=== PATIENT | female | born 1970 | race Caucasian/White ===

== ENCOUNTER 2018-09-30 10:42 | Day surgery (SDC) | payer OTHER ==
[~2018-09-30 10:42] MED LIST: CEFAZOLIN 2 GM/50 ML (PMX) 50 ML IVPB; SOD CHLORIDE 0.9% 1,000 ML IV
[2018-09-30] MEDS ORDERED: GLYCOPYRROLATE 0.4 MG INJ IV (10:43)
[2018-09-30] MEDS ORDERED: NEOSTIGMINE 3 MG/3 ML SYRINGE IV (10:43)
[2018-09-30] MEDS ORDERED: PROPOFOL 100 ML (12:34)
[2018-09-30] MEDS ORDERED: BUPIVACAINE 0.25% (MPF) 30 ML INJ (12:38)
[2018-09-30] MEDS ORDERED: CEFAZOLIN 1 GM INJ (12:47)
[2018-09-30] MEDS ORDERED: LIDOCAINE 2% (SDV) 5 ML INJ (12:47)
[2018-09-30] MEDS ORDERED: DEXAMETHASONE 4 MG/ML 1 ML INJ (12:50)
[2018-09-30] MEDS ORDERED: ONDANSETRON 4 MG INJ (12:50)
[2018-09-30] MEDS ORDERED: KETOROLAC 30 MG INJ (13:35)
[2018-09-30] MEDS: BUPIVACAINE 0.5%/EPI (SDV) 30 ML INJ (13:35)
[2018-09-30] MEDS ORDERED: MEPERIDINE 25 MG INJ IV (14:00)
[2018-09-30] MEDS ORDERED: IBUPROFEN 600 MG TAB PO (14:00)
[2018-09-30] MEDS ORDERED: MIDAZOLAM 1 MG/ML 2 ML INJ IV (14:00)
[2018-09-30] MEDS ORDERED: HYDROCODONE/APAP (5/325) TAB PO (14:00)
[2018-09-30] MEDS ORDERED: FENTAnyl 50 MCG/ML VIAL IV ×3 (14:00)
[2018-09-30] MEDS ORDERED: morphine 2 MG INJ IV (14:00)
[2018-09-30] MEDS ORDERED: hydrALAzine 20 MG INJ IV (14:00)
[2018-09-30] MEDS ORDERED: LABETALOL HCL 20MG INJ IV (14:00)
[2018-09-30] MEDS ORDERED: ONDANSETRON 4 MG INJ IV (14:00)
[2018-09-30] MEDS ORDERED: EPHEDrine SULFATE 50 MG/5 ML SYG IV (14:00)
[2018-09-30] MEDS ORDERED: OXYCODONE/ACETAMINOPHEN (5/325) TAB PO ×2 (14:00)
[2018-09-30] MEDS ORDERED: DIPHENHYDRAMINE 50 MG INJ IV (14:00)
[2018-09-30] MEDS ORDERED: HYDROmorphONE 1 MG/5 ML IV SYRINGE IV ×2 (14:00)
[2018-09-30] MEDS ORDERED: METOCLOPRAMIDE 10 MG INJ IV (14:00)
[2018-09-30] MEDS ORDERED: ALBUTEROL 0.083% (NEB) 2.5 MG/3 ML AMP HHN (14:00)
[2018-09-30] MEDS: ONDANSETRON 4 MG INJ IV ×2 (14:09→15:50)
[2018-09-30] MEDS: HYDROmorphONE 1 MG/5 ML IV SYRINGE IV (14:10)
[2018-09-30] MEDS: KETOROLAC 30 MG INJ IV (14:11)
[2018-09-30] MEDS: HYDROCODONE/APAP (5/325) TAB PO (14:15)
== END 2018-09-30 16:13 | disposition home or self-care (01) ==
LOC: SDS 10:42
DX: K80.20 Calculus of gallbladder without cholecystitis without obstruction (principal)
CPT/HCPCS: 47562; 84703; 88304